=== PATIENT | male | born 2000 ===

== ENCOUNTER 2021-09-07 14:33 | Emergency (ER) | payer BC ==
--- NOTE | 2021-09-07 15:07 | NUR ---
Science Education Professor notified by Odalys Airborne Weapons Technical Manager, of a code blue in Emergency. This Science Education Professor responded and learned in collaboration with [facility] [place] EMS, [facility] [place] ([phone]) that patient's name is Pepe Springer, : 2000. At the scene, was an adolescent who has been staying with patient/family; no other adults present at the time. This Science Education Professor confirms Chaplain Sandi is en-route to emergency department. Per EMS, social circumstances largely unknown at this time. [facility] informs belief patient mother is currently on a cruise and attempting to locate her; [facility] will contact this Science Education Professor if can identify contact for mother and/or reach her. Registration confirms patient healthcare coverage, a BCBS plan for Rosana Springer, believed to be patient mother, [employer], identified as plan subscriber employer. Internet database review of [employer] identifies a Rosana Springer, with office phone contact ([phone]). Science Education Professor attempted contact, but buisness hours in effect per voicemail and no message left. Chaplain Sandi, arrives and is in collaboration with this Science Education Professor and Airborne Weapons Technical Manager in attempt to locate telephone contact for patient mother or additional next-of-kin. Science Education Professor continues to follow and offer treatment team support, continue to seek further patient family/next of kin information.
[2021-09-07 15:36] LABS: HEMATOCRIT 41.6 % (36.0-47.0); HEMOGLOBIN 13.6 g/dl (12.5-16.1); MEAN CELL VOLUME 94 fl (80.0-95.0); MEAN CORPUSCULAR HEMOGLOBIN 31 pg (26-32); MEAN CORPUSCULAR HGB CONC 33 g/dl (33.0-37.0); MEAN PLATELET VOLUME 12.4 fl (7.4-10.4); PLATELET COUNT 108 K/mm3 (130-400); RED BLOOD COUNT 4.42 M/mm3 (4.20-5.60); REDCELL DISTRIBUTION WIDTH-CV 11.8 % (11.5-14.5)
[2021-09-07 15:47] LABS: ALANINE AMINOTRANSFERASE 325 U/L (0-55); ALBUMIN 1.7 gm/dL (3.5-5.0); ALKALINE PHOSPHATASE 143 U/L (40-150); AST,SGOT 541 U/L (5-34); BILIRUBIN,TOTAL 0.3 mg/dL (0.2-1.2); BLOOD UREA NITROGEN 37 mg/dL (9-21); CALCIUM 8.8 mg/dL (8.4-10.2); CHLORIDE 110 mmol/L (98-107); CREATININE, serum 2.78 mg/dL (0.72-1.25); GLUCOSE 761 mg/dL (70-99); SODIUM 142 mmol/L (136-145); TOTAL PROTEIN 3.3 gm/dL (6.2-8.1)
[2021-09-07 15:48] LABS: CARBON DIOXIDE < 5 mmol/L (22-29); POTASSIUM 8.2 mmol/L (3.5-4.5)
[2021-09-07 15:53] LABS: TROPONIN-I 0.073 ng/mL (0.00-0.033)
[2021-09-07 16:03] VITALS: BP 100/40; PULSE 80
[2021-09-07 16:07] LABS: BAND 13 % (0-10); EOSINOPHIL 3 % (0-4); LYMPHOCYTE 10 % (20.0-51.0); METAMYELOCYTE 16 % (0-0); NEUTROPHILS 52 % (42.0-75.2)
[2021-09-07 16:08] LABS: PLATELET ESTIMATE DECREASED (NORMAL)
[2021-09-07 16:11] LABS: HYPOCHROMIA 1+
--- NOTE | 2021-09-07 16:41 | NUR ---
Bobbin Handler is informed patient brother Phan Springer ([phone]) has arrived. This Bobbin Handler and Chaplain Sandi met with brother in consult room. Brother informs patient mother Rosana ([phone]) and 23 year old sister Kitty Springer left for a [employer] Cruise approximately 3 days ago following maternal grandmother's in [place] earlier this week. Phan informs patient father is , and the family is from [place], he and patient have lived in [place], [place], for approximately 2 years. 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 Brother informs he has recently returned from [employer] [facility]. Brother states he is in contact with "Connie" Mary Frost ([phone]), who is aware, lives out of town and is en-route to support him at the hospital. Brother declines water, comfort measures, and verbalizes understanding when Dr. Roper updates on patient status and plan to transfer to [facility] in [place], [place]. Brother is escorted to patient bedside. He continues to attempt contact to patient family, and is now seeking information to contact the cruise line requesting emergency contact to mother and sister. Chaplain Sandi is in contact with [employer] for further information/inquiry. Brother is given hospital information and driving directions to [facility]. He is given emergency contact number for [employer]. Team members collaborate in attempt to identify departing port city and/or name of cruise ship per customer service request. A list of possible cities/ships is identified from [place] [employer] website and attempts to rule out before customer service disconnected with request to confirm specific ship. Phan is updated and continues to attempt to reach mother/sister by text. Bobbin Handler attempts contact to [facility] in attempt to identify mother's connecting flight; Bobbin Handler is informed that information regarding passengers will not be released unless to [facility]. Bobbin Handler leaves message for [facility] Dispatch requesting [facility] contact as needing support to contact airport to release mother's information. SW awaiting call back. 16:48- Phan informs patient mother is now responding to text messages; he is attempting to coordinate a telephone call with pt mother on the cruise. Mother informs does not get to [place] until Wednesday by text; Phan is attempting to download souleymane to coordinate telephone/conference call. Mother confirms [employer]. 16:57: Phan has telephone contact with patient mother and sister. Chaplain Sandi, and Dr. Roper return to consult room to notify. Odalys FloresFinancial Sales Associate is updated. Bobbin Handler contacted [facility] to update. 17:02: Phan departs the hospital with driving directions to [place]; he expresses gratitude for services/support. escorts him to the ED entrance.
[2021-09-07 18:28] LABS: ARTERIAL BLD GAS O2 SATURATION 66.6 % (92-100); ARTERIAL BLD GAS TCO2 CT 31.5; ARTERIAL BLOOD GAS BASE EXCESS -5.7 (-2-2); ARTERIAL BLOOD GAS HCO3 27.7 meq/L (22-26); ARTERIAL BLOOD GAS PCO2 124.4 mmHg (35-45); ARTERIAL BLOOD GAS PO2 43.4 mmHg (80-100); ARTERIAL BLOOD GAS pH 6.97 (7.35-7.45)
== END 2021-09-07 16:55 | disposition short-term general hospital (02) ==
LOC: COL.ER 14:33 → EDBD 14:34 → COL.ER 16:55
PROVIDERS: Emergency Medicine
DX: I46.9 Cardiac arrest, cause unspecified (principal); E87.5 Hyperkalemia; E11.9 Type 2 diabetes mellitus without complications; Z96.41 Presence of insulin pump (external) (internal); Z20.822 Contact with and (suspected) exposure to COVID-19
CPT/HCPCS: J0171; J0461; J0610; J1720; J1815; J7030; J7050